=== PATIENT | female | born 1975 | race Caucasian/White ===

== ENCOUNTER → 2017-02-11 | Outpatient (CLI) | payer BC ==
--- NOTE | 2017-02-11 11:56 | US ---
EXAMINATION TYPE: US abdomen complete DATE OF EXAM: 02/11/2017 COMPARISON: NONE CLINICAL HISTORY: N85.8 specified noninflammatory disorders of uterus. Pelvic pain that extends into abdomen EXAM MEASUREMENTS: Liver Length: 14.2 cm Gallbladder Wall: 0.2 cm CBD: 0.5 cm Spleen: 10.2 cm Right Kidney: 9.9 x 4.5 x 4.6 cm Left Kidney: 9.9 x 4.4 x 5.3 cm overlying bowel gas limits exams Pancreas: wnl Liver: wnl Gallbladder: wnl Evidence for sonographic Freeman's sign: no CBD: wnl Spleen: wnl Right Kidney: wnl Left Kidney: wnl Upper IVC: wnl Abd Aorta: wnl The liver is homogenous. The intrahepatic portion of the IVC and proximal abdominal aorta are within normal limits. There is no evidence of cholelithiasis. Common bile duct is unremarkable. The visu alized portions of the pancreas are homogenous. The spleen is unremarkable. Kidneys are symmetric a nd free of hydronephrosis. No renal lesions are seen. IMPRESSION: Unremarkable abdominal ultrasound. No sonographic evidence of cholelithiasis or acute cho lecystitis.
--- NOTE | 2017-02-11 12:05 | US ---
EXAMINATION TYPE: US pelvis complete transvag DATE OF EXAM: 02/11/2017 COMPARISON: NONE CLINICAL HISTORY: N85.8 specified noninflammatory disorders of uterus. Pelvic pressure and pain ongoi ng for 6 years TECHNIQUE: TA and TV Date of LMP: 01/19/2017 EXAM MEASUREMENTS: Uterus: 10.1 x 6.9 x 5.8 cm Endometrial Stripe: 2.1 cm Right Ovary: 2.1 x 1.4 x 1.3 cm Left Ovary: 2.6 x 1.8 x 1.3 cm 1. Uterus: Anteverted there is diffuse heterogenous echotexture of the myometrium and junctional z one. 2. Endometrium: thickened in appearance 3. Right Ovary: wnl 4. Left Ovary: only seen transabdominally due to superior positioning Spectral, color and waveform doppler imaging shows good arterial and venous flow within the ovaries ; there is no evidence for ovarian torsion. 5. Bilateral Adnexa: wnl 6. Posterior cul-de-sac: wnl IMPRESSION: Diffusely thickened endometrium and heterogeneity of the myometrium and junctional zone t hat could relate to adenomyosis. Enhanced pelvic MR could be performed for further evaluation. Additi onally given the diffuse thickened endometrium sonohysterogram or direct visualization could be perfo rmed for further evaluation as this finding could relate to endometrial polyp, endometrial mass or hy perplasia.
== END | disposition home or self-care (01) ==
LOC: RADUSWWP 08:26
PROVIDERS: ATTEND Family Medicine
DX: R93.8 Abnormal findings on diagnostic imaging of other specified body structures (principal); N85.8 Other specified noninflammatory disorders of uterus
CPT/HCPCS: 76700; 76830; 76856